=== PATIENT | male | born 1980 ===

== ENCOUNTER → 2020-11-23 | Outpatient (CLI) | payer OTHER ==
--- NOTE | 2020-11-23 13:25 | KCIC ---
C-spine 5 views INDICATION: Cervicalgia and pain in the left shoulder. COMPARISON: None. FINDINGS: In the neutral position, the cervical lordosis is mildly exaggerated and disc prostheses are present at C5-C6 and C6-C7, each protruding anteriorly by approximately 3 mm. With neck flexion, focal kyphosis at C4-C5 is present but no listhesis is shown. With extension, no l isthesis is demonstrated either. There is however mild narrowing of the anterior joint space at C4-C5 with neck flexion. No fracture or aggressive bony lesions are seen. No periprosthetic lucency is identified. The facet j oints appear intact. No bony central canal stenosis is apparent. No prevertebral soft tissue swelling is identified. IMPRESSION: No evidence of abnormal motion status post C5-C6 and C6-C7 disc prosthesis with mild protrusion anter iorly of the prosthetic disks as described and focal kyphosis with flexion at the C4-C5 level. Electronically signed by: Jose Ernandez MD (11/23/2020 1:22 PM) [id number]
--- NOTE | 2020-11-23 14:11 | KCIC ---
EXAMINATION: MRI LEFT SHOULDER WITHOUT IV CONTRAST CLINICAL HISTORY: Left shoulder pain and left upper extremity numbness evidence neck surgery 2019 TECHNIQUE: Multiplanar multisequential images obtained through the shoulder without intravenous contr ast. COMPARISON: None FINDINGS: Evaluation limited by prominent motion artifact on multiple sequences despite repeat attempts at scan raheem. TENDONS: - Supraspinatus: Small low-grade partial thickness articular sided tear involving the posterior third of the tendon at the footplate. Moderate tendinosis. - Infraspinatus: Mild tendinosis without discrete tear. - Subscapularis: Mild tendinosis without discrete tear. - Teres Minor: Within normal limits. - Biceps Tendon: The long head biceps tendon is intact and appropriately located. MUSCLES: Muscle bulk and signal intensity are within normal limits. LABRUM: No discrete tear. GLENOHUMERAL JOINT: - Joint Fluid: No joint effusion or synovitis. - Cartilage: No full-thickness chondral defect visualized. ACROMIOCLAVICULAR JOINT: Minimal degenerative changes. BONES/MARROW: No evidence of acute fracture or suspicious marrow replacing process. OTHER: No other significant abnormality identified. IMPRESSION: Small low-grade partial thickness supraspinatus tendon tear and mild to moderate rotator cuff tendino sis. Electronically signed by: Ambrosio Jack DO (11/23/2020 2:09 PM) [id number]
== END ==
LOC: KCIC MRI 10:08
PROVIDERS: ATTEND Physician Assistant
DX: M48.02 Spinal stenosis, cervical region (principal); M75.102 Unspecified rotator cuff tear or rupture of left shoulder, not specified as traumatic; M79.18 Myalgia, other site; M25.512 Pain in left shoulder; Z98.890 Other specified postprocedural states
CPT/HCPCS: 72050; 73221

== ENCOUNTER → 2020-12-20 | Outpatient (CLI) | payer OTHER ==
--- NOTE | 2020-12-20 13:46 | KCIC ---
MRI of the thoracic spine without contrast 12/20/2020 CLINICAL HISTORY: Mid back pain. Left-sided posterior chest wall pain extending from the left scapula to the lumbar region. TECHNIQUE: Unenhanced T1-weighted, T2-weighted and inversion recovery sagittal and T1-weighted and T2 -weighted axial images of the thoracic spine were obtained. Additionally T1-weighted and inversion re covery axial and coronal images in the region of the left posterior chest wall in the area of the pat ient's pain was performed. FINDINGS: Very mild S-shaped curvature of the thoracolumbar spine is seen. Degenerative signal change s are seen involving all the disks of the thoracic spine. Degenerative signal changes are seen within the marrow scattered throughout these discs. The thoracic spinal cord is within normal limits in mor phology, position, and signal characteristics. There is no MRI evidence of a compression fracture inv olving the thoracic vertebrae. Degenerative changes are seen involving the thoracic disc spaces consisting of minimal to mild genera lized disc bulges and degenerative changes involving the facet joints. These findings do not result i n areas of significant central spinal canal or neural foraminal stenosis. MRI images involving the left posterior chest demonstrate no abnormality. IMPRESSION: 1. Degenerative changes are seen involving the thoracic spine as discussed above. These findings do n ot result in significant central spinal canal or neural foraminal stenosis. 2. No abnormality is seen within the left posterior chest in the area of the patient's pain. Electronically signed by: Bobo Mata MD (12/20/2020 1:44 PM) [id number]
== END ==
LOC: KCIC MRI 10:07
PROVIDERS: ATTEND Neurological Surgery
DX: M47.814 Spondylosis without myelopathy or radiculopathy, thoracic region (principal)
CPT/HCPCS: 72146

== ENCOUNTER → 2021-02-03 | Outpatient (CLI) | payer OTHER ==
[~2021-02-03] MED LIST: ASPI-630 PO; FLUT1BLS8 IH; GADOTERATE 7.5 MMOL/15ML VIAL. IVP ONE; LISI-517 PO
--- NOTE | 2021-02-03 13:31 | KCIC ---
MRI of the cervical spine without and with contrast 02/03/2021 CLINICAL HISTORY: Neck pain with left scapular pain and left arm numbness. History of previous cervic al spinal surgery. TECHNIQUE: Unenhanced T1-weighted, T2-weighted and inversion recovery sagittal and gradient echo, T1- weighted and T2-weighted axial images of the cervical spine were obtained. After the intravenous admi nistration of 16 cc of clear scan, enhanced T1-weighted sagittal and axial images of the cervical spi ne were obtained. FINDINGS: Comparison is made to radiographs of the cervical spine dated 11/23/2020. There is straightening of the normal cervical lordosis. Magnetic susceptibility artifact related to t he patient's disc replacements are seen at C5-6 and C6-7. Degenerative signal changes are seen involv ing the remaining discs of the cervical spine. Degenerative signal changes are seen within the marrow surrounding these discs. No area of abnormal signal intensity is seen involving the cervical spinal cord. No area of abnormal contrast enhancement is noted. At the C2-3, C3-4 and C4-5 disc spaces there are minimal to mild generalized disc bulges. Degenerativ e changes are seen involving the uncovertebral and facet joints bilaterally. These findings do not re sult in significant central spinal canal or neural foraminal stenosis. At the C5-6 disc space there is a mild to moderate generalized disc bulge. Degenerative changes are s een involving the uncovertebral and facet joints, right greater than left. These findings efface the anterior and posterior CSF resulting in mild central spinal canal stenosis without evidence of cord i mpingement. Mild to moderate bilateral neural foraminal stenosis is seen. At the C6-7 disc space there is a mild generalized disc bulge. Degenerative changes are seen involvin g the uncovertebral and facet joints bilaterally. These findings do not result in significant central spinal canal or neural foraminal stenosis. At the C7-T1 disc space there is a minimal generalized disc bulge. Degenerative changes are seen invo lving the facet joints, left greater than right. These findings do not result in significant central spinal canal stenosis. Mild left neural foraminal stenosis is seen. The right neural foramen is paten t. IMPRESSION: 1. Post cervical disc replacement at C5-6 and C6-7. 2. Degenerative changes are seen throughout the cervical spine. These findings result in mild central spinal canal stenosis at C5-6 without evidence of cord impingement. Mild to moderate bilateral neura l foraminal stenosis is seen at C5-6. Mild left neural foraminal stenosis is seen at C7-T1. Electronically signed by: Bobo Mata MD (02/03/2021 1:28 PM) [place] [id number]
== END ==
LOC: KCIC MRI 09:17
PROVIDERS: ATTEND Physician Assistant
DX: M47.812 Spondylosis without myelopathy or radiculopathy, cervical region (principal); M48.03 Spinal stenosis, cervicothoracic region; Z98.890 Other specified postprocedural states
CPT/HCPCS: 72156; A9575

== ENCOUNTER → 2021-08-03 | Outpatient (CLI) | payer OTHER ==
[~2021-08-03] MED LIST changes: -GADOTERATE 7.5 MMOL/15ML VIAL. IVP ONE; -LISI-517 PO; +LISI5TAB15 PO
--- NOTE | 2021-08-03 14:33 | KCIC ---
Exam:Left ribs with PA chest Date: 08/03/2021 8:55 AM Comparison: No prior Indication: Reason: Lt shoulder and Lt chest pain. / Spl. Instructions: Chronic pain, [place] earlier this year. / History: Findings/ Impression: AP, Oblique and Spot images of the left ribs are negative for acute displaced rib fracture. Negative focal pleural elevation. Symmetrical intercostal spacing. It is of note that an acute non-displaced rib fracture can be in-apparent on initial post-trauma imag ing. Electronically signed by: Hilario Orozco MD (08/03/2021 2:31 PM) [id number]
--- NOTE | 2021-08-03 14:35 | KCIC ---
EXAM: 2 views left scapula DATE: 08/03/2021 8:55 AM INDICATION: Reason: Lt shoulder and Lt chest pain. / Spl. Instructions: / History: . COMPARISON: No Prior FINDINGS/ IMPRESSION: No evidence of acute fracture or dislocation. AC joint is congruent. Humeral head is not high riding. Electronically signed by: Hilario Orozco MD (08/03/2021 2:33 PM) [id number]
== END ==
LOC: KCIC 08:34
PROVIDERS: ATTEND Specialist
DX: M25.512 Pain in left shoulder (principal); R07.9 Chest pain, unspecified
CPT/HCPCS: 71100; 73010